=== PATIENT | male | born 1950 | race Two or more races ===

== ENCOUNTER 2022-05-21 09:15 | Day surgery (SDC) | payer OTHER ==
[~2022-05-21] VITALS: Ht 177.8 cm; Wt 77.1 kg
[~2022-05-21 09:15] MED LIST: COZAAR100 MG; ECOTRIN81 MG; GLIPIZIDE XL5 MG; JANUMET 50-1,01 EACH; LEVOTHYROXINE50 MC1; METFORMIN HCL500 M3; SERTRALINE20 MG/1 ML; TOPROL XL100 M1
[2022-05-21] MEDS ORDERED: PERCOCET 5-3251 EACH PO (18:18)
== END 2022-05-21 23:30 | disposition home or self-care (01) ==
LOC: CIR.AMB 09:15
PROVIDERS: ATTEND Surgery
DX: C20 Malignant neoplasm of rectum (principal); K64.8 Other hemorrhoids; I48.91 Unspecified atrial fibrillation; E78.5 Hyperlipidemia, unspecified; I10 Essential (primary) hypertension; Z86.16 Personal history of COVID-19

== ENCOUNTER 2022-10-15 06:30 | Day surgery (SDC) | payer OTHER ==
[~2022-10-15] VITALS: Ht 177.8 cm; Wt 77.1 kg
[~2022-10-15 06:30] MED LIST changes: +PERCOCET 5-3251 EACH PO
[2022-10-15] MEDS ORDERED: TRAMADOL HCL50 MG PO (11:47)
== END 2022-10-15 13:10 | disposition home or self-care (01) ==
LOC: CIR.AMB 06:30
PROVIDERS: ATTEND Surgery
DX: C20 Malignant neoplasm of rectum (principal); Z20.822 Contact with and (suspected) exposure to COVID-19; K64.2 Third degree hemorrhoids; K62.5 Hemorrhage of anus and rectum; K62.89 Other specified diseases of anus and rectum; I10 Essential (primary) hypertension; E11.9 Type 2 diabetes mellitus without complications; F17.210 Nicotine dependence, cigarettes, uncomplicated; E03.9 Hypothyroidism, unspecified; Z79.84 Long term (current) use of oral hypoglycemic drugs